=== PATIENT | female | born 1960 | race Caucasian/White ===

== ENCOUNTER → 2016-05-22 | Outpatient (CLI) | payer OTHER ==
[~2016-05-22] VITALS: Ht 154.9 cm; Wt 83.0 kg
[~2016-05-22] MED LIST: ALEVE220 MG PO; ASPIR 8181 MG PO; CO Q-10100 MG PO; EFFIENT10 MG PO; INVOKANA100 MG PO; JANUMET XR 1001 EACH PO; LIPITOR 20 MG T20 M1 PO; LIPITOR10 MG PO; LOPERAMIDE 2 MG2 M1 PO; PROBIOTIC1 EAC1 PO; TOPROL XL100 MG PO; TYLENOL PM EX-1 EACH PO; VITAMIN B-12500 MCG PO
--- NOTE | ~2016-05-22 | CATHLAB ---
[facility] [place] [address] INVASIVE PROCEDURE REPORT Name: JABIER SOOD Room #: REG CL [facility]#: [id number] Admission: 05/22/16 Attend Phys: Eduardo Reyna MD Discharge: Date of : 56 Date of Service: 05/22/16 1033 Report #: [id number] THIS REPORT FOR: //name// CC: Eduardo Rehman DATE OF SERVICE: 05/22/2016 DATE OF SERVICE: 05/22/2016 INDICATIONS: Dyspnea on exertion, anginal equivalent. Full risks, benefits and alternatives of cardiac catheterization were explained to the patient. All questions were answered. Informed consent was obtained. A Barbeau test was performed on the right radial artery. The right wrist area was prepped and draped in a sterile manner. Lidocaine was given subcutaneously. A 5-Kiswahili sheath was inserted into the right radial artery via modified Seldinger technique. Nitroglycerin and verapamil was given through the sheath. 5000 units of heparin was given through peripheral IV. CORONARY ANATOMY: 1. The left main artery is a large caliber vessel, with no flow-limiting lesions. The LAD is a moderate sized caliber vessel, travelling down the anterior wall and wrapping around the apex. In the proximal segment, there was mild disease, less than 20%. In the mid segment of the LAD, there was a long stent, patent with mild restenosis, approximately 30%. The first diagonal artery is a moderate sized caliber vessel, with no flow-limiting lesions. The left circumflex artery is a codominant vessel. There is only mild plaquing in the ostium of the left circumflex artery, less than 20%. The obtuse marginal arteries did not have any flow-limiting lesions. The RCA supplies a small PDA. There were no flow-limiting lesions in the RCA. There may be some minimal plaquing in the mid segment of the RCA. A left ventriculogram was performed revealing a hyperdynamic LV systolic function, ejection fraction greater than 70%. The LVEDP is approximately 12 mmHg. There is no gradient across the outflow tract. FFR was performed on the mid LAD stent. ANGIOPLASTY REPORT: An ACT was checked. JL 3.5 guide catheter was used. After following the protocol with calibrating the FFR wire, he was placed distal to the mid LAD stent. Adenosine was given through peripheral IV as per protocol for a total of 2 minutes. The initial FFR was a 0.92, decreasing to 0.87. This is negative FFR finding. [address] [address] INVASIVE PROCEDURE REPORT Name: JABIER SOOD Room #: REG [facility]#: [id number] Admission: 05/22/16 Attend Phys: Eduardo Reyna MD Discharge: Date of : 56 Date of Service: 05/22/16 1033 Report #: [id number] The patient tolerated the procedure without any complications. IMPRESSION: 1. Patent mid LAD stent with negative FFR. 2. Codominant left circumflex system. 3. Hyperdynamic LV systolic function. 4. Recommend medical therapy. <ELECTRONICALLY SIGNED> By: Eduardo Reyna MD 05/23/16 0934 1033 [id number] Eduardo Reyna MD /nt
[2016-05-22 07:04] LABS: HEMATOCRIT 44.5 % (37.0-47.0); HEMOGLOBIN 14.7 gm/dL (12.0-15.0); MCV 94.2 fL (80.0-100.0); RBC 4.73 mil/uL (4.20-5.00); WBC 10.1 thou/uL (4.0-11.0)
[2016-05-22 07:13] LABS: ANION GAP 9 mmol/L (7-16); BUN 18 mg/dL (7-18); CALCIUM 9.3 mg/dL (8.5-10.1); CHLORIDE 102 mmol/L (98-107); CO2 29 mmol/L (21-32); CREATININE 0.9 mg/dL (0.6-1.3); GLUCOSE 188 mg/dL (70-99); POTASSIUM 4.3 mmol/L (3.5-5.1); SODIUM 140 mmol/L (136-145)
[2016-05-22 07:18] VITALS: BP 124/69
[2016-05-22 07:19] LABS: CHOLESTEROL 220 mg/dL (<200); HDL CHOLESTEROL 89 mg/dL (>40); LDL CHOLESTEROL 102 mg/dL (<100); TC:HDL 2.5 Ratio (Not establshd); TRIGLYCERIDE 148 mg/dL (<150); VLDL 30 mg/dL (<40)
== END | disposition home or self-care (01) ==
LOC: CATH 06:30
PROVIDERS: Internal Medicine Cardiovascular Disease
DX: I25.10 Atherosclerotic heart disease of native coronary artery without angina pectoris (principal); I48.91 Unspecified atrial fibrillation; E11.9 Type 2 diabetes mellitus without complications; I10 Essential (primary) hypertension; E78.00 Pure hypercholesterolemia, unspecified; Z87.891 Personal history of nicotine dependence; Z90.49 Acquired absence of other specified parts of digestive tract; Z90.710 Acquired absence of both cervix and uterus; Z98.890 Other specified postprocedural states; Z95.5 Presence of coronary angioplasty implant and graft

== ENCOUNTER → 2016-08-01 | Outpatient (CLI) | payer OTHER | LOC: PUL 09:47 | DX: R06.00 Dyspnea, unspecified (principal) ==

== ENCOUNTER → 2019-07-14 | Outpatient (CLI) | payer OTHER | LOC: SJCVCIMAG 08:23 | DX: R00.0 Tachycardia, unspecified (principal); I48.91 Unspecified atrial fibrillation; I25.10 Atherosclerotic heart disease of native coronary artery without angina pectoris; I73.9 Peripheral vascular disease, unspecified; I10 Essential (primary) hypertension; E78.00 Pure hypercholesterolemia, unspecified; E78.5 Hyperlipidemia, unspecified; J45.909 Unspecified asthma, uncomplicated; E11.9 Type 2 diabetes mellitus without complications; Z79.82 Long term (current) use of aspirin; Z79.84 Long term (current) use of oral hypoglycemic drugs; Z79.899 Other long term (current) drug therapy; Z87.891 Personal history of nicotine dependence ==

== ENCOUNTER → 2020-09-23 | Outpatient (CLI) | payer OTHER | LOC: SJCVCIMAG 12:56 | PROVIDERS: ATTEND Internal Medicine Cardiovascular Disease | DX: I65.23 Occlusion and stenosis of bilateral carotid arteries (principal); I10 Essential (primary) hypertension; E78.5 Hyperlipidemia, unspecified; F17.200 Nicotine dependence, unspecified, uncomplicated ==

== ENCOUNTER → 2021-04-06 | Outpatient (CLI) | payer OTHER | LOC: SJCVCIMAG 03-17 14:38 | PROVIDERS: ATTEND Internal Medicine Cardiovascular Disease | DX: I25.10 Atherosclerotic heart disease of native coronary artery without angina pectoris (principal); I10 Essential (primary) hypertension ==